=== PATIENT | male | born 1995 | race Hispanic/Latino ===

== ENCOUNTER 2017-08-16 07:42 | Outpatient (CLI) | payer BC | END 2017-08-16 07:43 | disposition home or self-care (01) | LOC: BICMRI 07:42 | PROVIDERS: ATTEND Orthopaedic Surgery | DX: M25.561 Pain in right knee (principal); S83.211A Bucket-handle tear of medial meniscus, current injury, right knee, initial encounter; M25.461 Effusion, right knee; Z87.898 Personal history of other specified conditions; Z98.890 Other specified postprocedural states ==

== ENCOUNTER 2025-03-30 08:54 | Emergency (ER) | payer SELFPAY ==
[2025-03-30 09:42] LABS: CAUTI Indications for Culture Acute Hematuria; Glucose, Urine (Dipstick) Normal (Negative); Leukocyte Negative Leu/uL (Negative); Protein, Urine (Dipstick) Negative (Neg-Trace); RBC/HPF Greater than 50 HPF (0-3); Specific Gravity, Urine 1.006 (1.002-1.036); WBC/HPF Greater than 50 HPF (0-3)
[2025-03-30 09:44] LABS: Bacteria/HPF 1+ HPF (None Seen)
[2025-03-30 09:46] LABS: Urine Culture Reflex Yes Yes
[2025-03-30 09:59] LABS: Hematocrit 48.5 % (42.0-52.0); Hemoglobin 16.4 g/dL (14.0-18.0); Mean Corpuscular Hemoglobin 28.4 pg (27.0-31.0); Mean Corpuscular Volume 83.9 fL (78.0-98.0); Platelet Count 279 10x3/uL (130-400); Red Blood Cell (RBC) Count 5.78 mill/uL (4.70-6.10); White Blood Cell (WBC) Count 15.57 10x3/uL (4.8-10.8)
[2025-03-30 10:07] LABS: ALT (SGPT) 39 U/L (Less than 45); AST (SGOT) 24 U/L (11-34); Albumin 4.4 g/dL (3.1-4.5); Alkaline Phosphatase 57 U/L (40-110); Anion Gap 16 mmol/L (10-20); BUN (Urea Nitrogen) 7 mg/dL (8.9-20.6); Bilirubin, Total 0.7 mg/dL (0.3-1.2); Calc. Creatinine Clearance 0 mL/min (70-130); Calcium 9.5 mg/dL (7.8-10.44); Carbon Dioxide 28 mmol/L (22-29); Chloride 101 mmol/L (98-107); Globulin 2.8 g/dL (2.4-3.5); Glucose 94 mg/dL (70-105); Potassium 3.5 mmol/L (3.5-5.1); Sodium 141 mmol/L (136-145)
[2025-03-30 10:20] LABS: Platelet Adequacy Comment Platelets Normal; Polychromasia SLIGHT = 2-3 cells HPF (0-2); Smudge Cells 2.0 %; Stomatocytes SLIGHT = 2-5 cells HPF (0-1)
[2025-03-30] MEDS ORDERED: Iopamidol-370 76% 500 ML MDV (1 ML CHARGE) ONE (13:26)
== END 2025-03-30 12:08 | disposition home or self-care (01) ==
LOC: ERS 08:54
DX: R31.9 Hematuria, unspecified (principal); T14.8XXA Other injury of unspecified body region, initial encounter; V49.40XA Driver injured in collision with unspecified motor vehicles in traffic accident, initial encounter
CPT/HCPCS: 74177; 80053; 81001; 85025; 87086; Q9967